=== PATIENT | male | born 1975 | race Caucasian/White ===

== ENCOUNTER 2021-01-10 10:57 | Emergency (ER) | payer SELFPAY ==
[2021-01-10] MEDS: Sodium Chloride 0.9% 1,000 ML IV ONE (11:59)
[2021-01-10] MEDS: Lidocaine 2% with EPINEPHrine 1:100,000 20 ML MDV INJECT ONE (11:59)
[2021-01-10] MEDS ORDERED: Ondansetron 4 MG/2 ML SDV IVPUSH ONE (12:01)
--- NOTE | 2021-01-10 12:06 | EDM.PDOC ---
ED HPI GENERAL MEDICAL PROBLEM - General Chief Complaint: Laceration Stated Complaint: HIT HEAD ON CONCRETE Time Seen by Provider: 01/10/21 11:44 Source of Information: Reports: Patient, Family - History of Present Illness INITIAL COMMENTS - FREE TEXT/NARRATIVE: Flip is a 45 y/o male who is brought to the ER by his dad after he had a seizure. He has a hx of a seizure disorder, but has not had a seizure in over 10 years. He took himself off his seizure meds about 3 years ago. Him and his dad are currently traveling from [place], [place] to [place], [place] to go on a 9 day [employer] hunting trip in the [facility]. They left home this AM and stopped in [place]. Patient's dad reports that he came out of the gas station and then just stopped and fell to the ground and he had a grand mal type seizure that last 4-5 minutes. He did hit his head on the concrete and sustained a laceration to the back of his scalp. Dad reports that he was post-ictal afterwards, but on the car ride here to the ER he became more clear. He did have COVID about 2-3 weeks ago and then the last couple days he has not felt well and has been vomiting. He has not had much in for intake. Denies fevers. Thinks that the last couple days could have been enough stress to precipitate a seizure. He also has a vagal nerve stimulator in place and does go in in yearly to have the battery checked. He has not seen anybody for a year now. Posterior Head Pain Score (Numeric/FACES): 5 - Related Data Allergies Allergy/AdvReac Type Severity Reaction Status Date / Time hydrocodone [From [place]] Allergy Itching Verified 01/10/21 13:20 oxycodone [From Percocet] Allergy Itching Verified 01/10/21 13:20 Home Meds: Home Meds . [Unable to Verify Home Med List] 01/10/21 [History] ED ROS GENERAL - Review of Systems Review Of Systems: See Below Constitutional: Reports: Fatigue, Decreased Appetite HEENT: Reports: No Symptoms Respiratory: Reports: No Symptoms Cardiovascular: Reports: No Symptoms Endocrine: Reports: No Symptoms GI/Abdominal: Reports: Decreased Appetite, Vomiting : Reports: No Symptoms Musculoskeletal: Reports: No Symptoms Skin: Reports: No Symptoms (scalp laceration), Wound Neurological: Reports: Confusion Psychiatric: Reports: No Symptoms Hematologic/Lymphatic: Reports: No Symptoms Immunologic: Reports: No Symptoms ED EXAM, SKIN/RASH Exam: See Below General Appearance: Alert, WD/WN, No Apparent Distress (Adult male, he is slightly drosy but sitting in the chair in the exam room. Able to walk into the ER.) Ears: Normal External Exam, Hearing Grossly Normal, Normal TMs Nose: Normal Inspection, Normal Mucosa Throat/Mouth: Normal Inspection, Normal Lips, Normal Voice Head: Normocephalic, Other (Note stellite lacearation, approximately 4 cm in diameter, mildly bleeding.) Neck: Normal Inspection, Supple Respiratory/Chest: No Respiratory Distress, Lungs Clear, Chest Non-Tender Cardiovascular: Normal Peripheral Pulses, Regular Rate, Rhythm GI/Abdominal: Normal Bowel Sounds, Soft (Male) Exam: Deferred Rectal (Males) Exam: Deferred Back Exam: Normal Inspection, Full Range of Motion Extremities: Normal Inspection, Normal Range of Motion, No Pedal Edema, Normal Capillary Refill Neurological: Alert, Oriented, CN II-XII Intact, Normal Cognition, Normal Gait, No Motor/Sensory Deficits Psychiatric: Normal Mood, Flat Affect Skin: Warm, Dry, Intact, Normal Color Course - Vital Signs Text/Narrative:: 1144 The patient was seen by the INDUSTRIAL SERVICES WORKER. Labs ordered. He as given a laiter of NS and Zofran 4mg IVP. Head CT ordered since he has not had a recurrent seizure for 10 years. Scalp laceration was repaired. See Procedure note. PROCEDURE NOTE Laceration-Simple Repair Following review of risks, benefits, and alternatives, the scalp laceration was prepped with saline and Betadine. Lidocaine 2% with Epi-4ml used for local. 11 skin nicole were used to close the wound. Hemostatis obtained and dressing applied. Tetanus status unknown. He tolerated the procedure well. EBL=minimal [address] for scan and INDUSTRIAL SERVICES WORKER called to the room because patient was actively seizing. He was brought back to the ER and meds given to calm patient. See nurse's notes. 1310 Total of Lorazepam 12mg IVP and Versed 6mg (4mg IM and 2mg IV) given before pt resting and no longer combative following seizure. 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 Reported that patient does drink heavily and he has not had any alcohol now for a few days, but last alcohol intake date/time unknown. Potassium and Magnesium replacements ordered. K=2.9, No=385, Mag=1.5. Also note elevated LFTs and T Bili, Amylase, Lipase pending. 1330 [facility] contacted. Dr Dawson accepted the patient at 1339. 1405 Meds continuing until transport, patient resting and VSS at this time. Remained stable and resting when [facility] arrived for transfer. Last Recorded V/S: Last Vital Signs Temp 36.6 C 01/10/21 11:05 Pulse 108 H 01/10/21 13:58 Resp 18 01/10/21 11:05 BP 105/71 01/10/21 13:58 Pulse Ox 96 01/10/21 13:58 - Orders/Labs/Meds Orders: Active Orders 24 hr Category Date Time Status DRUG SCREEN, URINE [URCHEM] Stat Lab 01/10/21 11:52 Ordered UA RFX NANI AND CULT IF INDIC [URIN] Stat Lab 01/10/21 11:52 Ordered Folic Acid 1 mg Med 01/10/21 13:30 Active Thiamine [Vitamin B-1] 200 mg MVI, Adult with Vitamin K [Infuvite Adult] 10 ml Sodium Chloride 0.9% with KCl [Normal Saline with 40 mEq KCl] 1,000 ml IV ONETIME Medication Orders Folic Acid 1 mg/ Thiamine HCl 200 mg/ Multivitamins/Minerals 10 ml/ Potassium Chloride/Sodium Chloride 1,012.2 mls @ 250 mls/hr IV ONETIME ONE Stop: 01/10/21 17:32 Last Admin: 01/10/21 13:50 Dose: 250 mls/hr Documented by: NOÉ Labs: Laboratory Tests 01/10/21 01/10/21 01/10/21 Range/Units 12:00 12:00 12:00 WBC 4.5 (4.0-10.0) x10^3/uL RBC 3.69 L (4.5-6.0) x10^6/uL Hgb 12.9 L (14.0-18.0) g/dL Hct 35.1 L (40.0-52.0) % MCV 95.1 H (78.0-93.0) fL MCH 35.0 H (26.0-32.0) pg MCHC 36.8 H (32.0-36.0) g/dL RDW Coeff of Trisha 11.8 (10.0-15.0) % Plt Count 119 L (130-400) x10^3/uL Immature Gran % (Auto) 0.20 (0.00-0.43) % Neut % (Auto) 75.0 (50.0-80.0) % Lymph % (Auto) 13.9 L (25.0-50.0) % [place] % (Auto) 10.7 (2.0-11.0) % Eos % (Auto) 0.0 (0.0-4.0) % Baso % (Auto) 0.2 (0.2-1.2) % Neut # (Auto) 3.4 (1.8-7.7) x10^3/uL Lymph # (Auto) 0.6 L (1.0-4.8) x10^3/uL [place] # (Auto) 0.5 (0.0-0.8) x10^3/uL Eos # (Auto) 0.0 (0.0-0.5) x10^3/uL Baso # (Auto) 0.0 (0.0-0.2) x10^3/uL Immature Gran # (Auto) 0.01 (0.00-0.07) x10^3/uL Sodium 132 L (136-145) mmol/L Potassium 2.9 L* (3.5-5.1) mmol/L Chloride 92 L (98-107) mmol/L Carbon Dioxide 30 (21-32) mmol/L Anion Gap 12.9 (5-15) mmol/L BUN 15 (7-18) mg/dL Creatinine 1.0 (0.70-1.30) mg/dL Est Cr Clr Drug Dosing TNP Estimated GFR (MDRD) > 60 Glucose 118 H (70-99) mg/dL Calcium 9.2 (8.5-10.1) mg/dL Corrected Calcium 9.1 (8.5-10.1) mg/dL Magnesium 1.5 L (1.8-2.4) mg/dL Total Bilirubin 2.5 H (0.2-1.0) mg/dL AST 192 H (15-37) U/L ALT 108 H (16-63) U/L Alkaline Phosphatase 124 H (46-116) U/L C-Reactive Protein < 0.2 (<=0.9) mg/dL Total Protein 7.3 (6.4-8.2) g/dL Albumin 4.1 (3.4-5.0) g/dL Globulin 3.2 Albumin/Globulin Ratio 1.28 Amylase 49 (25-115) U/L Lipase 164 (73-393) U/L Ethyl Alcohol < 3 (0-3) mg/dL Meds: Medications Generic Name Dose Route Start Last Admin Trade Name Freq PRN Reason Stop Dose Admin Folic Acid 1 mg/ Thiamine HCl 1,012.2 mls @ 250 mls/hr 01/10/21 13:30 01/10/21 13:50 200 mg/ Multivitamins/Minerals IV 01/10/21 17:32 250 mls/hr 10 ml/ Potassium Chloride/ ONETIME ONE Administration Sodium Chloride Discontinued Medications Generic Name Dose Route Start Last Admin Trade Name Freq PRN Reason Stop Dose Admin Sodium Chloride 1,000 mls @ 999 mls/hr 01/10/21 11:53 01/10/21 11:59 Normal Saline IV 01/10/21 12:53 999 mls/hr ONETIME ONE Administration Fosphenytoin Sodium 1,800 mg. 136 mls @ 400 mls/hr 01/10/21 12:46 pe/ Sodium Chloride IV 01/10/21 13:05 ONETIME ONE Fosphenytoin Sodium 1,600 mg. 132 mls @ 388.235 mls/hr 01/10/21 13:00 13:04 pe/ Sodium Chloride IV 01/10/21 13:20 388.235 mls/hr ONETIME ONE Administration Magnesium Sulfate 50 mls @ 50 mls/hr 01/10/21 13:15 01/10/21 13:50 Magnesium Sulfate In Water 2 Gm/50 Ml IV 01/10/21 14:14 50 mls/hr ONETIME ONE Administration Magnesium Sulfate Confirm 01/10/21 13:03 Magnesium Sulfate In Water 2 Gm/50 Ml Administered 01/10/21 13:04 Dose 50 mls @ as directed .ROUTE .STK-MED ONE Lidocaine/Epinephrine 20 ml 01/10/21 11:52 01/10/21 11:59 Lidocaine 2% With Epinephrine 1:100,000 20 Ml Mdv INJECT 01/10/21 11:53 20 ml ONETIME ONE Administration Lorazepam Confirm 01/10/21 12:16 Lorazepam 2 Mg/Ml Sdv Administered 01/10/21 12:17 Dose 4 mg .ROUTE .STK-MED ONE Lorazepam Confirm 01/10/21 12:38 Lorazepam 2 Mg/Ml Sdv Administered 01/10/21 12:39 Dose 2 mg .ROUTE .STK-MED ONE Lorazepam Confirm 01/10/21 12:47 Lorazepam 2 Mg/Ml Sdv Administered 01/10/21 12:48 Dose 6 mg .ROUTE .STK-MED ONE Midazolam HCl Confirm 01/10/21 12:25 Midazolam 1 Mg/Ml 2 Ml Sdv Administered 01/10/21 12:26 Dose 2 mg .ROUTE .STK-MED ONE Midazolam HCl Confirm 01/10/21 12:38 Midazolam 1 Mg/Ml 2 Ml Sdv Administered 01/10/21 12:39 Dose 10 mg .ROUTE .STK-MED ONE Ondansetron HCl 4 mg 01/10/21 12:01 Ondansetron 4 Mg/2 Ml Sdv IVPUSH 01/10/21 12:02 ONETIME ONE Departure - Departure Time of Disposition: 13:39 Disposition: DC/Tfer to Acute Hospital 02 Condition: Good Clinical Impression: Seizure, History of methamphetamine use, Electrolyte imbalance Alcohol withdrawal seizure Qualifiers: Complication of substance-induced condition: with unspecified complication Qualified Code(s): F10.239 - Alcohol dependence with withdrawal, unspecified Nausea & vomiting Qualifiers: Vomiting type: unspecified Vomiting Intractability: unspecified Qualified Code(s): R11.2 - Nausea with vomiting, unspecified Scalp laceration Qualifiers: Encounter type: initial encounter Qualified Code(s): S01.01XA - Laceration without foreign body of scalp, initial encounter - Discharge Information Referrals: PCP,Not In Area [Primary Care Provider] - Forms: ED Department Discharge, Interfacility Transfer EMTALA Additional Instructions: -Transfer to [facility]-Dr Martinez Sepsis Event Note (ED) - Focused Exam Vital Signs: Vital Signs Temp Pulse Resp BP Pulse Ox 01/10/21 13:58 108 H 105/71 96 01/10/21 13:28 115 H 107/66 94 L 01/10/21 13:09 114 H 122/75 93 L 01/10/21 11:05 36.6 C 112 H 18 121/89 97 - Problem List & Annotations (1) Alcohol withdrawal seizure SNOMED Code(s): 364121870 Code(s): F10.239 - ALCOHOL DEPENDENCE WITH WITHDRAWAL, UNSPECIFIED; R56.9 - UNSPECIFIED CONVULSIONS Status: Acute Current Visit: Yes Annotation/ Comment:: Long standing seizure disorder. No seizures last 10 years and off seizure meds. Cerybyx 1600mg IVPB given in the ER along with Lorazepam and Versend following seziure in ER. Head CT ordered, but not obtained prior to ER departure. Qualifiers: Complication of substance-induced condition: with unspecified complication Qualified Code(s): F10.239 - Alcohol dependence with withdrawal, unspecified; R56.9 - Unspecified convulsions (2) Electrolyte imbalance SNOMED Code(s): 214912230 Code(s): E87.8 - OTH DISORDERS OF ELECTROLYTE AND FLUID BALANCE, NEC Status: Acute Current Visit: Yes Annotation/Comment:: K=2.9, Mg=1.5. Potassium and Magnesium replacements ordered. (3) History of methamphetamine use SNOMED Code(s): 681079517 Code(s): Z87.898 - PERSONAL HISTORY OF OTHER SPECIFIED CONDITIONS Status: Acute Current Visit: Yes Annotation/Comment:: Last use acording to his dad was 15 years ago. (4) Nausea & vomiting SNOMED Code(s): 31520619 Code(s): R11.2 - NAUSEA WITH VOMITING, UNSPECIFIED Status: Acute Current Visit: Yes Annotation/Comment:: Last 2 days has been having sx, also complaining of abd pain. T Bili=2.5, Lipase and Amylase pending. Will rule out Pancreatitis. No imaging done here. Qualifiers: Vomiting type: unspecified Vomiting Intractability: unspecified Qualified Code(s): R11.2 - Nausea with vomiting, unspecified (5) Scalp laceration SNOMED Code(s): 333995627 Code(s): S01.01XA - LACERATION WITHOUT FOREIGN BODY OF SCALP, INITIAL ENCOUNTER Status: Acute Current Visit: Yes Annotation/Comment:: Laceration repaired with nicole. See Procedure note. Qualifiers: Encounter type: initial encounter Qualified Code(s): S01.01XA - Laceration without foreign body of scalp, initial encounter - Problem List Review Problem List Initiated/Reviewed/Updated: Yes - My Orders Last 24 Hours: My Active Orders 01/10/21 11:52 DRUG SCREEN, URINE [URCHEM] Stat UA RFX NANI AND CULT IF INDIC [URIN] Stat 01/10/21 13:30 Folic Acid 1 mg Thiamine [Vitamin B-1] 200 mg MVI, Adult with Vitamin K [Infuvite Adult] 10 ml Sodium Chloride 0.9% with KCl [Normal Saline with 40 mEq KCl] 1,000 ml IV ONETIME - Assessment/Plan Last 24 Hours: My Active Orders 01/10/21 11:52 DRUG SCREEN, URINE [URCHEM] Stat UA RFX NANI AND CULT IF INDIC [URIN] Stat 01/10/21 13:30 Folic Acid 1 mg Thiamine [Vitamin B-1] 200 mg MVI, Adult with Vitamin K [Infuvite Adult] 10 ml Sodium Chloride 0.9% with KCl [Normal Saline with 40 mEq KCl] 1,000 ml IV ONETIME Plan: -Transfer to [facility] Dr Dawson via [facility]
[2021-01-10] MEDS ORDERED: LORazepam 2 MG/ML SDV ONE ×3 (12:16→12:47)
[2021-01-10] MEDS: LORazepam 2 MG/ML SDV IVPUSH ONE ×6 (12:20→13:10)
[2021-01-10] MEDS ORDERED: Midazolam 1 MG/ML 2 ML SDV ONE ×2 (12:25→12:38)
[2021-01-10 12:27] LABS: CHLORIDE,CL 92 mmol/L (98-107); SODIUM,NA 132 mmol/L (136-145)
[2021-01-10] MEDS: Midazolam 1 MG/ML 2 ML SDV IVPUSH ONE ×2 (12:35→12:51)
[2021-01-10 12:38] LABS: ANION GAP 12.9 mmol/L (5-15)
[2021-01-10] MEDS: Midazolam 1 MG/ML 2 ML SDV IM ONE (12:45)
[2021-01-10] MEDS ORDERED: Magnesium Sulfate/Water 50 ML ONE (13:03)
[2021-01-10] MEDS: [UNRECOGNIZED DRUG - OTHER] IV ONE ×4 (13:50)
[2021-01-10] MEDS: MVI IV ONE ×4 (13:50)
[2021-01-10] MEDS: THIAMINE IV ONE ×4 (13:50)
[2021-01-10] MEDS: FOLIC ACID IV ONE ×4 (13:50)
[2021-01-10] MEDS: VITAMIN K IV ONE ×4 (13:50)
[2021-01-10] MEDS: Magnesium Sulfate/Water 50 ML IV ONE (13:50)
== END 2021-01-10 15:05 | disposition short-term general hospital (02) ==
LOC: VM.ED 10:57
DX: S01.01XA Laceration without foreign body of scalp, initial encounter (principal); G40.909 Epilepsy, unspecified, not intractable, without status epilepticus; F10.239 Alcohol dependence with withdrawal, unspecified; E87.8 Other disorders of electrolyte and fluid balance, not elsewhere classified; Z88.5 Allergy status to narcotic agent; Y90.0 Blood alcohol level of less than 20 mg/100 ml; W18.30XA Fall on same level, unspecified, initial encounter
CPT/HCPCS: 12002; 80053; 80307; 82150; 83690; 83735; 85025; 86140; 96365; 96367; 96368; 96372; 96375; 96376; 99284; 99285-25; J2060; J2250; J3411; J3475; J3480; J7030; Q2009